=== PATIENT | male | born 1985 | race Caucasian/White ===

== ENCOUNTER 2017-07-03 18:44 | Emergency (ER) | payer OTHER ==
[~2017-07-03] VITALS: Ht 193 cm; Wt 76.8 kg
[2017-07-03 19:05] VITALS: BP 135/73; PULSE 74; RESP 16; TEMP 98.2; O2SAT 99
[2017-07-03] MEDS ORDERED: ALEV220T14 PO (19:18)
--- NOTE | 2017-07-03 19:34 | PD ---
HPI Chief Complaint: Injury Time Seen by Provider: 19:12 Travel History International Travel<30 days: No Contact w/Intl Traveler<30days: No Traveled to known affect area: No History of Present Illness HPI 31-year-old male presents to the emergency room for evaluation of right heel pain for the past week. Patient was arguing with his significant other and slammed his heel down on the ground several times. States since then he has had severe pain localized to the plantar heel. Pain is worse with ambulation but he has been able to walk since injuring it. Pain improves when he is wearing tennis shoes and worsens when he is barefoot. Patient took ibuprofen which dulled the pain. States he is concerned because of the persistence. States he initially had bruising but that has resolved. Denies paresthesias. No chronic medical conditions or daily medications. PFSH Past Medical History Medical History: Denies Significant Hx Tetanus Vaccination: < 5 Years Influenza Vaccination: No Past Surgical History Surgical History: No Previous Surgery Social History Alcohol Use: No Tobacco Use: No Substance Use: No Allergies-Medications (Allergen,Severity, Reaction): Coded Allergies: No Known Allergies (Unverified , 07/03/17) Reported Meds & Prescriptions Reported Meds & Active Scripts Active Reported Aleve Arthritis (Naproxen Sodium) 220 Mg Tab 220 Mg PO DAILY Review of Systems Except as stated in HPI: all other systems reviewed are Neg Physical Exam Narrative GENERAL: Well-nourished, well-developed male in no acute distress. Afebrile. Ambulatory. SKIN: Focused skin assessment warm/dry. No erythema or ecchymosis. HEAD: Normocephalic. EYES: No scleral icterus. No injection or drainage. NECK: Supple, trachea midline. No JVD or lymphadenopathy. CARDIOVASCULAR: Regular rate and rhythm without murmurs, gallops, or rubs. RESPIRATORY: Breath sounds equal bilaterally. No accessory muscle use. MUSCULOSKELETAL: No cyanosis. No significant edema noted. Full range of motion of the foot. 2+ dorsalis pedis pulse and less than 2 second capillary refill distally. Tenderness to palpation of the calcaneus. Data Data Last Documented VS Vital Signs Date Time Temp Pulse Resp B/P (MAP) Pulse Ox O2 Delivery O2 Flow Rate FiO2 07/03/17 19:26 16 99 Room Air 07/03/17 19:05 98.2 74 135/73 (93) Orders Orders Foot, Complete ([id number]) (07/03/17 ) [facility] Medical Decision Making Medical Screen Exam Complete: Yes Emergency Medical Condition: Yes Medical Record Reviewed: Yes Differential Diagnosis Heel fracture, contusion, plantar fasciitis Narrative Course 31-year-old male presents to the emergency room for evaluation of right heel pain for the past week. Patient injured it by slamming his heel down on the floor during an argument with his significant other. Patient has been ambulatory since onset of symptoms. States he has been walking with a limp. Pain is improved with tennis shoes. Physical exam is reassuring. There is no erythema, ecchymosis, or notable edema. X-ray of the heel is negative for acute bony abnormality. Patient will be discharged with Riccardo wrap and told to follow-up with her primary care physician and return for worsening symptoms. He understands and agrees to plan. Diagnosis Primary Impression: Contusion of right heel Qualified Codes: S90.31XA - Contusion of right foot, initial encounter Referrals: Primary Care Physician Additional Instructions: Take ibuprofen with food as directed, as needed for pain. Apply ice to the affected area for 20 minutes at a time, as needed for pain and swelling. Follow-up with a primary care physician. Return to the emergency room for worsening symptoms. Med/Other Pt SpecificInfo: Prescription(s) given Disposition: 01 DISCHARGE HOME Condition: Sofia Cabrales Jul 03, 2017 19:34
--- NOTE | 2017-07-03 20:15 | RADRPT ---
EXAM DATE/TIME: 07/03/2017 19:25 [facility] COMPARISON: No previous studies available for comparison. INDICATIONS : Right foot and heel pain. Patient states he slammed his foot down on the ground. MEDICAL HISTORY : None. SURGICAL HISTORY : None. ENCOUNTER: Initial ACUITY: 1 week PAIN SCORE: 8/10 LOCATION: Right foot. FINDINGS: Three views of the right foot demonstrate no fracture or dislocation. The Lisfranc joint appears inta ct. Mineralization is within normal limits and there is no significant arthropathy. No soft tissue ab normality or radiopaque foreign body is identified. CONCLUSION: No acute right foot abnormality is identified. Regan Guillermo MD on July 03, 2017 at 20:13 Board Certified Radiologist. This report was verified electronically.
== END 2017-07-03 20:41 | disposition home or self-care (01) ==
LOC: PHEFT 18:44
DX: S90.31XA Contusion of right foot, initial encounter (principal); W22.09XA Striking against other stationary object, initial encounter; Y93.89 Activity, other specified
CPT/HCPCS: 73630; 99283

== ENCOUNTER 2017-07-23 17:56 | Emergency (ER) | payer OTHER ==
[~2017-07-23] VITALS: Ht 193 cm; Wt 75.0 kg
[~2017-07-23 17:56] MED LIST: ALEV220T14 PO
[2017-07-23 18:00] VITALS: BP 131/77; PULSE 97; RESP 17; TEMP 101.2; O2SAT 98
[2017-07-23] MEDS ORDERED: SODIUM CHLOR 0.9% 1000 ML INJ 1,000 ML IV ONE (20:30)
[2017-07-23] MEDS ORDERED: ONDANSETRON HCL 4 MG/2 ML VIAL IV ONE (20:30)
--- NOTE | 2017-07-23 20:43 | PD ---
HPI Chief Complaint: GI Complaint Time Seen by Provider: 19:55 Travel History International Travel<30 days: No Contact w/Intl Traveler<30days: No Traveled to known affect area: No History of Present Illness HPI This patient complains of nausea and vomiting diarrhea. Duration 3 days. Severity is moderate. He is not having abdominal pain but does have fever. No alleviating factors. Denies any medical history. No ill contacts PFSH Social History Alcohol Use: No Tobacco Use: No Substance Use: No Allergies-Medications (Allergen,Severity, Reaction): Coded Allergies: No Known Allergies (Unverified , 07/03/17) Reported Meds & Prescriptions Reported Meds & Active Scripts Active Zofran (Ondansetron HCl) 4 Mg Tab 4 Mg PO Q6HR PRN Flagyl (Metronidazole) 500 Mg Tab 500 Mg PO TID 7 Days Cipro (Ciprofloxacin HCl) 500 Mg Tab 500 Mg PO BID 7 Days Reported Aleve Arthritis (Naproxen Sodium) 220 Mg Tab 220 Mg PO DAILY Review of Systems General / Constitutional: Positive: Fever Eyes: No: Visual changes HENT: No: Headaches Cardiovascular: No: Chest Pain or Discomfort Respiratory: No: Shortness of Breath Gastrointestinal: Positive: Nausea, Vomiting, Diarrhea, No: Abdominal Pain Genitourinary: No: Dysuria Musculoskeletal: No: Pain Skin: No Rash Neurologic: No: Weakness Psychiatric: No: Depression Endocrine: No: Polydipsia Hematologic/Lymphatic: No: Easy Bruising Physical Exam Narrative GENERAL: Well-nourished, well-developed patient in no apparent distress. SKIN: Focused skin assessment reveals no rash and nodules. Skin is Warm and dry. HEAD: Atraumatic. Normocephalic. EYES: Pupils equal and round. No scleral icterus. No injection or drainage. ENT: No nasal bleeding or discharge. Mucous membranes pink and moist. NECK: Trachea midline. No JVD. CARDIOVASCULAR: Regular rate and rhythm. No murmur appreciated. RESPIRATORY: No accessory muscle use. Clear to auscultation. Breath sounds equal bilaterally. GASTROINTESTINAL: Abdomen soft, non-tender, nondistended. Hepatic and splenic margins not palpable. MUSCULOSKELETAL: No obvious deformities. No clubbing. No cyanosis. No edema. NEUROLOGICAL: Awake and alert. No obvious cranial nerve deficits. Motor grossly within normal limits. Normal speech. PSYCHIATRIC: Appropriate mood and affect; insight and judgment normal. Data Data Last Documented VS Vital Signs Date Time Temp Pulse Resp B/P (MAP) Pulse Ox O2 Delivery O2 Flow Rate FiO2 07/23/17 20:43 20 07/23/17 18:00 101.2 97 131/77 (95) 98 Orders Orders Iv Access Insert/Monitor (07/23/17 20:25) Complete Blood Count With Diff (07/23/17 20:25) Basic Metabolic Panel (Bmp) (07/23/17 20:25) Sodium Chlor 0.9% 1000 Ml Inj (Ns 1000 M (07/23/17 20:30) Ondansetron Inj (Zofran Inj) (07/23/17 20:30) Enteric Path (Stool) (07/23/17 20:36) Stool Ova And Parasite Screen (07/23/17 20:36) Acetaminophen (Tylenol) (07/23/17 22:15) Labs Laboratory Tests Test 07/23/17 20:40 White Blood Count 12.4 TH/MM3 Red Blood Count 5.70 MIL/MM3 Hemoglobin 16.5 GM/DL Hematocrit 48.3 % Mean Corpuscular Volume 84.8 FL Mean Corpuscular Hemoglobin 29.0 PG Mean Corpuscular Hemoglobin Concent 34.2 % Red Cell Distribution Width 12.7 % Platelet Count 191 TH/MM3 Mean Platelet Volume 8.2 FL Neutrophils (%) (Auto) 88.1 % Lymphocytes (%) (Auto) 6.5 % Monocytes (%) (Auto) 5.2 % Eosinophils (%) (Auto) 0.0 % Basophils (%) (Auto) 0.2 % Neutrophils # (Auto) 10.9 TH/MM3 Lymphocytes # (Auto) 0.8 TH/MM3 Monocytes # (Auto) 0.6 TH/MM3 Eosinophils # (Auto) 0.0 TH/MM3 Basophils # (Auto) 0.0 TH/MM3 CBC Comment DIFF FINAL Differential Comment Blood Urea Nitrogen 11 MG/DL Creatinine 1.12 MG/DL Random Glucose 81 MG/DL Calcium Level 9.2 MG/DL Sodium Level 138 MEQ/L Potassium Level 3.6 MEQ/L Chloride Level 102 MEQ/L Carbon Dioxide Level 27.5 MEQ/L Anion Gap 9 MEQ/L Estimat Glomerular Filtration Rate 78 ML/MIN MDM Medical Decision Making Medical Screen Exam Complete: Yes Emergency Medical Condition: Yes Medical Record Reviewed: Yes Differential Diagnosis Gastroenteritis, diverticulitis, colitis Narrative Course I have reviewed the patient's electronic medical record. IV placed I gave him IV Zofran and 1 L normal saline IV Abdomen is soft and benign and nontender CBC shows some mild leukocytosis Metabolic profile is normal Stool was sent for culture and sensitivity as well as ova and parasite Given his fever and now report of the little bit of blood in his stool going to cover him with Cipro and Flagyl. I wrote some nausea medicine to use if needed. He looks clinically stable for outpatient follow-up. Abdomen is soft and benign and nontender. I gave him 1 g of Tylenol for fever Diagnosis Primary Impression: Gastroenteritis Additional Impression: Fever Qualified Codes: R50.9 - Fever, unspecified Additional Instructions: The patient was advised to follow up with their physician and return if they worsen. Med/Other Pt SpecificInfo: Prescription(s) given Scripts Ondansetron (Zofran) 4 Mg Tab 4 MG PO Q6HR Y for NAUSEA OR VOMITING, #12 TAB 0 Refills Prov: Johnny Landeros MD 07/23/17 Metronidazole (Flagyl) 500 Mg Tab 500 MG PO TID for Infection for 7 Days, TAB 0 Refills Prov: Johnny Landeros MD 07/23/17 Ciprofloxacin (Cipro) 500 Mg Tab 500 MG PO BID for Infection for 7 Days, TAB 0 Refills Prov: Johnny Landeros MD 07/23/17 Disposition: 01 DISCHARGE HOME Condition: Stable Johnny Landeros MD Jul 23, 2017 20:42
[2017-07-23 21:30] LABS: AUTOMATED NEUTROPHIL # 10.9 TH/MM3 (1.8-7.7); BASOPHIL % 0.2 % (0.0-2.0); HEMATOCRIT 48.3 % (39.0-51.0); LYMPH % 6.5 % (9.0-44.0); LYMPHOCYTE # 0.8 TH/MM3 (1.0-4.8); MEAN CELL VOLUME 84.8 FL (80.0-100.0); MEAN CORPUSCULAR HGB CONC 34.2 % (32.0-36.0); MONO % 5.2 % (0.0-8.0); NEUT % 88.1 % (16.0-70.0); PLATELET COUNT 191 TH/MM3 (150-450); RED CELL DISTRIBUTION WIDTH 12.7 % (11.6-17.2); WHITE BLOOD COUNT 12.4 TH/MM3 (4.0-11.0)
[2017-07-23 21:35] LABS: HEMO FLAGS DIFF FINAL
[2017-07-23 21:40] LABS: BICARBONATE 27.5 MEQ/L (21.0-32.0); POTASSIUM 3.6 MEQ/L (3.5-5.1)
[2017-07-23] MEDS ORDERED: ACETAMINOPHEN 500 MG CPLT PO ONE (22:15)
[2017-07-23] MEDS ORDERED: CIPR-9 PO (22:52)
[2017-07-23] MEDS ORDERED: METR-1 PO (22:52)
[2017-07-23] MEDS ORDERED: ZOFR4TAB PO (22:52)
[2017-07-23 23:24] VITALS: RESP 16
== END 2017-07-23 23:50 | disposition home or self-care (01) ==
LOC: NEPD 17:56
DX: K52.9 Noninfective gastroenteritis and colitis, unspecified (principal); R50.9 Fever, unspecified
CPT/HCPCS: 80048; 85025; 87328; 87329; 87506; 96361; 96374; 99284; J2405; J7030